=== PATIENT | female | born 1975 | race Two or more races ===

== ENCOUNTER 2017-06-20 12:17 | Emergency (ER) | payer OTHER ==
[~2017-06-20] VITALS: Ht 152.4 cm; Wt 76.2 kg
[~2017-06-20 12:17] MED LIST: GEMF600T3 PO; No meds per pt.; OMEP-110 PO; ONDA4TAB10 PO
[2017-06-20] MEDS ORDERED: HYDROmorphone 1 MG/ML, 1ML ONE ×2 (13:08→13:56)
[2017-06-20] MEDS: HYDROmorphone 1 MG/ML, 1ML IM PRN ×2 (13:16→14:00)
[2017-06-20] MEDS ORDERED: MAALOX/HYOSCYAMINE/LIDOCAINE 45 ML BTL ONE (14:15)
[2017-06-20] MEDS ORDERED: ONDANSETRON ODT 4 MG ONE (14:27)
[2017-06-20 14:30] VITALS: BP 108/60
[2017-06-20] MEDS ORDERED: MAALOX/HYOSCYAMINE/LIDOCAINE 45 ML BTL PO ONE (14:30)
[2017-06-20] MEDS ORDERED: METOCLOPRAMIDE 5 MG/ML, 2ML ONE (14:55)
[2017-06-20] MEDS ORDERED: LORazepam 2 MG/ML, 1ML ONE (14:55)
[2017-06-20] MEDS ORDERED: morphine SULFATE 10 MG/ML, 1ML ONE (14:55)
[2017-06-20] MEDS ORDERED: MORPHINE SULFATE 4 MG/ML, 1ML IVPush PRN (15:00)
[2017-06-20] MEDS ORDERED: LORazepam 2 MG/ML, 1ML IVPush ONE (15:00)
[2017-06-20] MEDS ORDERED: METOCLOPRAMIDE 5 MG/ML, 2ML IVPush ONE (15:00)
== END 2017-06-20 16:09 | disposition home or self-care (01) ==
LOC: ED 13:01
DX: R51 Headache (principal); R10.9 Unspecified abdominal pain; Z90.710 Acquired absence of both cervix and uterus; Z90.49 Acquired absence of other specified parts of digestive tract
CPT/HCPCS: 70450; 96372; 96374; 96375; 99284; J1170; J2060; J2765

== ENCOUNTER 2017-08-07 11:16 | Day surgery (SDC) | payer OTHER ==
[2017-08-06 10:48] VITALS: BP 114/75
[~2017-08-07] VITALS: Ht 152.4 cm; Wt 74.3 kg
[~2017-08-07 11:16] MED LIST changes: +PANT20TA3 PO; +SUCR1TAB PO
[2017-08-07 11:41] VITALS: BP 114/75
[2017-08-07] MEDS ORDERED: LACTATED RINGERS 1,000 ML IV SCH (11:56)
[2017-08-07] MEDS ORDERED: PROPOFOL 10 MG/ML, 20ML ONE (13:04)
[2017-08-07] MEDS ORDERED: ACETAMINOPHEN 325 MG TABLET PO PRN (14:00)
[2017-08-07] MEDS ORDERED: ONDANSETRON 2MG/ML, 2ML IVPush PRN (14:00)
[2017-08-07] MEDS ORDERED: FENTANYL PF 100 MCG/2ML IV PRN (14:00)
== END 2017-08-07 14:40 ==
LOC: OUT 11:16
PROVIDERS: ATTEND Internal Medicine Gastroenterology
DX: K29.50 Unspecified chronic gastritis without bleeding (principal); K21.0 Gastro-esophageal reflux disease with esophagitis; K22.10 Ulcer of esophagus without bleeding; Z90.3 Acquired absence of stomach [part of]; Z88.8 Allergy status to other drugs, medicaments and biological substances; Z90.710 Acquired absence of both cervix and uterus; Z85.41 Personal history of malignant neoplasm of cervix uteri
CPT/HCPCS: 43239; 88305; J2704; J7120

== ENCOUNTER → 2018-02-18 | Outpatient (CLI) | payer OTHER ==
[2018-02-18 08:00] LABS: HCT (SEDRATE) 39.6 % (34.6-47.8)
[2018-02-18 08:16] LABS: CHOL/HDL RATIO 4.1; LDL/HDL RATIO 2.4 (0.5-3.0)
[2018-02-19 13:51] LABS: ANA SCREEN NEGATIVE (Negative)
== END | disposition home or self-care (01) ==
LOC: LAB 07:46
PROVIDERS: ATTEND Family Medicine
DX: Z13.1 Encounter for screening for diabetes mellitus (principal); E78.5 Hyperlipidemia, unspecified; M79.643 Pain in unspecified hand
CPT/HCPCS: 36415; 80061; 83036; 85651; 86038; 86430

== ENCOUNTER → 2018-07-15 | Outpatient (CLI) | payer OTHER ==
[~2018-07-15] MED LIST changes: -GEMF600T3 PO; +GEMF600T4 PO
[2018-07-15 08:23] LABS: BASOPHILS # (AUTO) 0.03 x10^3/uL (0-0.1); BASOPHILS % (AUTO) 1 % (0-1); EOSINOPHILS # (AUTO) 0.05 x10^3/uL (0-0.4); EOSINOPHILS % (AUTO) 1 % (1-7); LYMPHOCYTES # (AUTO) 1.67 x10^3/uL (1-3.4); LYMPHOCYTES % (AUTO) 44 % (22-44); MD NO; MEAN CORPUSCULAR HGB CONC 33.5 g/dL (32.4-35.8); MEAN CORPUSCULAR VOLUME 89.3 fL (80-100); MEAN PLATELET VOLUME 8.9 fL (7.4-10.4); MONOCYTES # (AUTO) 0.41 x10^3/uL (0.2-0.8); MONOCYTES % (AUTO) 11 % (2-9); NEUTROPHILS # (AUTO) 1.68 x10^3/uL (1.8-6.8); NEUTROPHILS % (AUTO) 44 % (42-75); PLATELET COUNT 219 x10^3/uL (130-400); RED BLOOD COUNT 4.68 x10^6/uL (3.82-5.3); RED CELL DISTRIBUTION WIDTH 12.1 % (9.6-15.2)
[2018-07-15 08:35] LABS: ALANINE AMINOTRANSFERASE 23 U/L (12-78); ALBUMIN 4.2 g/dL (3.4-5.0); ANION GAP 7 mmol/L (5-15); CALCIUM 9.3 mg/dL (8.5-10.1); CHLORIDE 108 mmol/L (98-107); CHOLESTEROL, TOTAL 217 mg/dL (140-239)
[2018-07-15 08:45] LABS: ALKALINE PHOSPHATASE 74 U/L (45-117); BILIRUBIN,TOTAL 0.5 mg/dL (0.2-1.0); CHOL/HDL RATIO 4.1; HDL CHOL % 24 % (28-40); HDL CHOLESTEROL (DIRECT) 53 mg/dL (40-60); LDL CHOLESTEROL,CALCULATED 136 mg/dL (54-169); LDL/HDL RATIO 2.6 (0.5-3.0); TOTAL PROTEIN 7.6 g/dL (6.4-8.2); TRIGLYCERIDES 138 mg/dL (50-200); VLDL CHOLESTEROL 28 mg/dL (0-25)
== END | disposition home or self-care (01) ==
LOC: LAB 08:11
PROVIDERS: ATTEND Family Medicine
DX: R53.83 Other fatigue (principal); E78.2 Mixed hyperlipidemia
CPT/HCPCS: 36415; 80053; 80061; 84443; 85025

== ENCOUNTER 2018-07-27 18:44 | Emergency (ER) | payer OTHER | END 2018-07-27 19:29 | disposition left against medical advice (07) | LOC: ED 19:23 | DX: M25.511 Pain in right shoulder (principal); Z53.21 Procedure and treatment not carried out due to patient leaving prior to being seen by health care provider ==

== ENCOUNTER 2018-08-12 21:21 | Emergency (ER) | payer OTHER ==
[~2018-08-12] VITALS: Ht 149.9 cm; Wt 76.1 kg
[2018-08-12 22:05] LABS: BASOPHILS # (AUTO) 0.03 x10^3/uL (0-0.1); BASOPHILS % (AUTO) 1 % (0-1); EOSINOPHILS # (AUTO) 0.06 x10^3/uL (0-0.4); EOSINOPHILS % (AUTO) 1 % (1-7); LYMPHOCYTES # (AUTO) 1.82 x10^3/uL (1-3.4); LYMPHOCYTES % (AUTO) 33 % (22-44); MD NO; MEAN CORPUSCULAR HEMOGLOBIN 30.8 pg (27.0-34.8); MEAN CORPUSCULAR VOLUME 90.7 fL (80-100); MEAN PLATELET VOLUME 8.9 fL (7.4-10.4); MONOCYTES # (AUTO) 0.47 x10^3/uL (0.2-0.8); MONOCYTES % (AUTO) 9 % (2-9); NEUTROPHILS # (AUTO) 3.07 x10^3/uL (1.8-6.8); NEUTROPHILS % (AUTO) 56 % (42-75); PLATELET COUNT 237 x10^3/uL (130-400); RED BLOOD COUNT 4.48 x10^6/uL (3.82-5.3); RED CELL DISTRIBUTION WIDTH 12.7 % (9.6-15.2)
[2018-08-12 22:17] LABS: ALANINE AMINOTRANSFERASE 20 U/L (12-78); ALBUMIN 3.7 g/dL (3.4-5.0); ANION GAP 5 mmol/L (5-15); CALCIUM 8.6 mg/dL (8.5-10.1); CHLORIDE 113 mmol/L (98-107); CREATININE 0.88 mg/dL (0.55-1.02); INTERNATIONAL NORMALIZED RATIO 1.01 (0.93-1.1); PROTHROMBIN TIME 10.7 Seconds (9.6-11.5)
[2018-08-12 22:19] LABS: ALKALINE PHOSPHATASE 68 U/L (45-117); BILIRUBIN,TOTAL 0.2 mg/dL (0.2-1.0); TOTAL PROTEIN 7.1 g/dL (6.4-8.2)
[2018-08-12 23:23] VITALS: BP 148/87
== END 2018-08-12 23:25 | disposition home or self-care (01) ==
LOC: ED 21:58
DX: K92.0 Hematemesis (principal); C53.9 Malignant neoplasm of cervix uteri, unspecified; Z90.49 Acquired absence of other specified parts of digestive tract; Z90.710 Acquired absence of both cervix and uterus
CPT/HCPCS: 36415; 80053; 85025; 85610; 85730; 86850; 86900; 99283

== ENCOUNTER 2018-09-18 09:08 | Day surgery (SDC) | payer OTHER ==
[~2018-09-18] VITALS: Ht 152.4 cm; Wt 74.8 kg
[~2018-09-18 09:08] MED LIST changes: -GEMF600T4 PO; +GEMF600T8 PO; +MULT-658 PO
[2018-09-18 09:32] VITALS: BP 107/70
[2018-09-18] MEDS ORDERED: LACTATED RINGERS 1,000 ML IV SCH (09:39)
[2018-09-18] MEDS ORDERED: PROPOFOL 10 MG/ML, 50ML ONE (11:30)
== END 2018-09-18 11:55 | disposition home or self-care (01) ==
LOC: OUT 09:08
PROVIDERS: ATTEND Internal Medicine Gastroenterology
DX: K21.0 Gastro-esophageal reflux disease with esophagitis (principal); Z90.3 Acquired absence of stomach [part of]; Z98.890 Other specified postprocedural states; Z88.5 Allergy status to narcotic agent; Z88.8 Allergy status to other drugs, medicaments and biological substances
CPT/HCPCS: 43239; 88305; J2704; J7120

== ENCOUNTER 2018-12-13 18:59 | Emergency (ER) | payer OTHER ==
[~2018-12-13] VITALS: Ht 152.4 cm; Wt 73.8 kg
[2018-12-13 19:05] VITALS: BP 108/64
[2018-12-13] MEDS ORDERED: KETOROLAC 30 MG/1 ML ONE (19:18)
[2018-12-13] MEDS ORDERED: KETOROLAC 30 MG/1 ML IM ONE (19:30)
== END 2018-12-13 19:55 | disposition home or self-care (01) ==
LOC: ED 19:20
DX: M19.011 Primary osteoarthritis, right shoulder (principal); M25.532 Pain in left wrist
CPT/HCPCS: 73030; 73110; 96372; 99283; J1885

== ENCOUNTER → 2019-03-02 | Outpatient (CLI) | payer OTHER | END | disposition home or self-care (01) | LOC: CFH 09:28 | PROVIDERS: ATTEND Family Medicine | DX: N63.10 Unspecified lump in the right breast, unspecified quadrant (principal) | CPT/HCPCS: 76642; 77066; G0279 ==

== ENCOUNTER 2019-09-23 12:28 | Emergency (ER) | payer OTHER ==
[~2019-09-23] VITALS: Ht 152.4 cm; Wt 80.0 kg
--- NOTE | 2019-09-23 16:27 | NUR ---
nilx1 for pit
[2019-09-23 17:01] LABS: BASOPHILS # (AUTO) 0.03 x10^3/uL (0-0.1); BASOPHILS % (AUTO) 1 % (0-1); EOSINOPHILS # (AUTO) 0.07 x10^3/uL (0-0.4); EOSINOPHILS % (AUTO) 1 % (1-7); LYMPHOCYTES # (AUTO) 1.46 x10^3/uL (1-3.4); LYMPHOCYTES % (AUTO) 27 % (22-44); MD NO; MEAN CORPUSCULAR HEMOGLOBIN 30.2 pg (27.0-34.8); MEAN CORPUSCULAR HGB CONC 33.7 g/dL (32.4-35.8); MEAN CORPUSCULAR VOLUME 89.8 fL (80-100); MEAN PLATELET VOLUME 9.1 fL (7.4-10.4); MONOCYTES # (AUTO) 0.52 x10^3/uL (0.2-0.8); MONOCYTES % (AUTO) 10 % (2-9); NEUTROPHILS % (AUTO) 62 % (42-75); PLATELET COUNT 222 x10^3/uL (130-400); RED BLOOD COUNT 4.64 x10^6/uL (3.82-5.3)
[2019-09-23 17:14] LABS: ALANINE AMINOTRANSFERASE 150 U/L (12-78); ALBUMIN 4.1 g/dL (3.4-5.0); ANION GAP 4 mmol/L (5-15); CALCIUM 9.4 mg/dL (8.5-10.1); CHLORIDE 110 mmol/L (98-107); CREATININE 0.68 mg/dL (0.55-1.02)
[2019-09-23 17:16] LABS: ALKALINE PHOSPHATASE 106 U/L (45-117); BILIRUBIN,TOTAL 0.7 mg/dL (0.2-1.0); TOTAL PROTEIN 7.5 g/dL (6.4-8.2)
--- NOTE | 2019-09-23 17:20 | NUR ---
PATIENT BROUGHT BACK FROM LOBBY CHIEF COMPLAINT OF PAIN IN CENTER OF ABDOMEN RADIATING TO LOWER BACK STARTING AT 10 AM THIS MORNING. DENIES N/V, CP, SOB. PATIENT STATES "FEELS LIKE I HAVE AIR IN MY STOMACH", LAST BM TODAY
[2019-09-23 17:50] LABS: CULTURE INDICATED? YES; HCG UR SG 1.016 (1.003-1.030); MICROSCOPIC INDICATED
--- NOTE | 2019-09-23 18:16 | NUR ---
LOLITA MARIA AT BEDSIDE FOR EVALUATION
[2019-09-23] MEDS ORDERED: ONDANSETRON 2MG/ML, 2ML IVPush ONE (18:30)
[2019-09-23] MEDS ORDERED: FAMOTIDINE 20 MG/2 ML IVPush ONE (18:30)
[2019-09-23] MEDS ORDERED: MORPHINE SULFATE 4 MG/ML, 1ML ONE ×2 (18:39→21:03)
[2019-09-23] MEDS ORDERED: ONDANSETRON 2MG/ML, 2ML ONE (18:39)
[2019-09-23] MEDS ORDERED: FAMOTIDINE 20 MG/2 ML ONE (18:39)
[2019-09-23] MEDS: MORPHINE SULFATE 4 MG/ML, 1ML IVPush PRN ×2 (18:43→21:07)
--- NOTE | 2019-09-23 18:53 | NUR ---
REPORT TO JOEY QUIROGA
--- NOTE | 2019-09-23 19:02 | NUR ---
Report from Alcira QUIROGA, pt in [facility] side rails up and call light within reach.
[2019-09-23] MEDS ORDERED: OMEP-110 PO (19:08)
[2019-09-23] MEDS ORDERED: OMNIPAQUE 350 MG/ML, 100ML BOTTLE ONE (19:34)
[2019-09-23] MEDS ORDERED: MAALOX/HYOSCYAMINE/LIDOCAINE 45 ML BTL ONE (20:09)
--- NOTE | 2019-09-23 20:15 | NUR ---
Pt medicated per MAR.
[2019-09-23] MEDS ORDERED: MAALOX/HYOSCYAMINE/LIDOCAINE 45 ML BTL PO ONE (20:30)
[2019-09-23 21:05] VITALS: BP 108/67
--- NOTE | 2019-09-23 21:08 | NUR ---
pt medicated for pain, see mar
--- NOTE | 2019-09-23 21:35 | NUR ---
pt resting calmly on gurney with eyes closed, stated " pain is really better it's 09/10 now", denies further needs. chart up for recheck
--- NOTE | 2019-09-23 21:45 | NUR ---
Pt ready for dc, IV out with tip intact.
== END 2019-09-23 21:56 | disposition home or self-care (01) ==
LOC: ED 17:17
DX: R10.11 Right upper quadrant pain (principal); R10.13 Epigastric pain; Z90.49 Acquired absence of other specified parts of digestive tract
CPT/HCPCS: 36415; 74177; 80053; 81001; 81025; 83690; 85025; 87086; 96374; 96375; 96376; 99284; J2270; J2405; J3490; Q9967

== ENCOUNTER 2019-10-08 14:03 | Outpatient (CLI) | payer OTHER | END 2019-10-08 23:59 | disposition home or self-care (01) | LOC: LAB 14:03 → RAD 23:59 | PROVIDERS: ATTEND Family Medicine | DX: M25.552 Pain in left hip (principal) ==

== ENCOUNTER → 2019-10-14 | Outpatient (CLI) | payer OTHER | END | disposition home or self-care (01) | LOC: RAD 15:50 | PROVIDERS: ATTEND Family Medicine | DX: R51 Headache (principal) | CPT/HCPCS: 70551 ==

== ENCOUNTER → 2020-01-17 | Emergency (ER) | payer OTHER ==
[~2020-01-17] VITALS: Ht 152.4 cm; Wt 84.0 kg
[~2020-01-17] MED LIST changes: +MORPHINE SULFATE 4 MG/ML, 1ML IVPush PRN; +OMNIPAQUE 350 MG/ML, 100ML BOTTLE ONE; +ONDANSETRON 2MG/ML, 2ML IVPush ONE; +SODIUM CHLORIDE FLUSH 10ML SYR IVF ONE
--- NOTE | 2020-01-17 16:58 | NUR ---
PT STATES THAT SHE BEGAN HAVING ABD PAIN YEST. PT DENIES N/V/D. LAST BM TODAY AND WAS NORMAL. PT PLACED ON MONITOR. WILL CONTINUE TO MONITOR.
--- NOTE | 2020-01-17 17:48 | NUR ---
PT STATES THAT SHE IS NOT CURRENTLY IN PAIN OR NAUSEATED. PT STATES SHE DOES NOT WANT ANY NAUSEA OR PAIN MEDICATION. I INSTRUCTED THE PT TO INFORM ME IF SHE NEEDS ANY MEDICATION OR ASSISTANCE. PT VERBALIZED UNDERSTANDING. PT RESTING COMFORTABLY. WILL CONTINUE TO MONITOR.
[2020-01-17 18:00] LABS: BASOPHILS # (AUTO) 0.02 x10^3/uL (0-0.1); BASOPHILS % (AUTO) 1 % (0-1); EOSINOPHILS # (AUTO) 0.05 x10^3/uL (0-0.4); EOSINOPHILS % (AUTO) 1 % (1-7); LYMPHOCYTES % (AUTO) 38 % (22-44); MD NO; MEAN CORPUSCULAR HGB CONC 34.2 g/dL (32.4-35.8); MEAN CORPUSCULAR VOLUME 90.8 fL (80-100); MEAN PLATELET VOLUME 8.8 fL (7.4-10.4); MONOCYTES # (AUTO) 0.36 x10^3/uL (0.2-0.8); MONOCYTES % (AUTO) 8 % (2-9); NEUTROPHILS # (AUTO) 2.36 x10^3/uL (1.8-6.8); NEUTROPHILS % (AUTO) 53 % (42-75); PLATELET COUNT 226 x10^3/uL (130-400); RED BLOOD COUNT 4.22 x10^6/uL (3.82-5.3); RED CELL DISTRIBUTION WIDTH 12.5 % (9.6-15.2)
[2020-01-17 18:14] LABS: ALBUMIN 3.6 g/dL (3.4-5.0); ANION GAP 4 mmol/L (5-15); CHLORIDE 111 mmol/L (98-107)
[2020-01-17 18:17] LABS: MICROSCOPIC AUTO
[2020-01-17 18:18] LABS: ALANINE AMINOTRANSFERASE 18 U/L (12-78); ALKALINE PHOSPHATASE 69 U/L (45-117); BILIRUBIN,TOTAL 0.2 mg/dL (0.2-1.0); CREATININE 0.73 mg/dL (0.55-1.02); TOTAL PROTEIN 6.9 g/dL (6.4-8.2)
[2020-01-17 19:24] VITALS: BP 111/63
== END ==
LOC: ED 19:48
DX: R10.11 Right upper quadrant pain (principal); R10.12 Left upper quadrant pain; R10.32 Left lower quadrant pain; R10.13 Epigastric pain
CPT/HCPCS: 36415; 74177; 80053; 81001; 83690; 85025; 87086; 99285; Q9967

== ENCOUNTER → 2020-10-26 | Outpatient (CLI) | payer OTHER ==
[~2020-10-26] MED LIST changes: +GEMF-31 PO; -GEMF600T8 PO; -MORPHINE SULFATE 4 MG/ML, 1ML IVPush PRN; -OMNIPAQUE 350 MG/ML, 100ML BOTTLE ONE; -ONDANSETRON 2MG/ML, 2ML IVPush ONE; -PANT20TA3 PO; +PANT20TA4 PO; -SODIUM CHLORIDE FLUSH 10ML SYR IVF ONE
[2020-10-26 07:43] LABS: BASOPHILS % (AUTO) 1 % (0-1); EOSINOPHILS % (AUTO) 1 % (1-7); LYMPHOCYTES % (AUTO) 38 % (22-44); MEAN CORPUSCULAR HEMOGLOBIN 30.1 pg (27.0-34.8); MEAN CORPUSCULAR HGB CONC 33.9 g/dL (32.4-35.8); MEAN PLATELET VOLUME 8.3 fL (7.4-10.4); MONOCYTES % (AUTO) 8 % (2-9); NEUTROPHILS % (AUTO) 52 % (42-75); PLATELET COUNT 237 x10^3/uL (130-400); RED BLOOD COUNT 4.65 x10^6/uL (3.82-5.3); RED CELL DISTRIBUTION WIDTH 12.5 % (9.6-15.2)
[2020-10-26 07:44] LABS: MD NO
[2020-10-26 07:45] LABS: HCT (SEDRATE) 41.3 % (34.6-47.8)
[2020-10-26 07:55] LABS: ALANINE AMINOTRANSFERASE 20 U/L (12-78); ALBUMIN 3.7 g/dL (3.4-5.0); ANION GAP 6 mmol/L (5-15); C-REACTIVE PROTEIN, QUANT 0.09 mg/dL (0.02-0.49); CALCIUM 8.5 mg/dL (8.5-10.1); CHLORIDE 111 mmol/L (98-107); CHOLESTEROL, TOTAL 184 mg/dL (140-239); CREATININE 0.71 mg/dL (0.55-1.02)
[2020-10-26 08:03] LABS: ALKALINE PHOSPHATASE 77 U/L (45-117); BILIRUBIN,TOTAL 0.4 mg/dL (0.2-1.0); CHOL/HDL RATIO 3.5; HDL CHOL % 28 % (28-40); HDL CHOLESTEROL (DIRECT) 52 mg/dL (40-60); LDL CHOLESTEROL,CALCULATED 112 mg/dL (54-169); LDL/HDL RATIO 2.2 (0.5-3.0); TRIGLYCERIDES 99 mg/dL (50-200); VLDL CHOLESTEROL 20 mg/dL (0-25)
[2020-10-26 15:11] LABS: ANA SCREEN NEGATIVE (Negative)
== END | disposition home or self-care (01) ==
LOC: RAD 07:22
PROVIDERS: ATTEND Family Medicine
DX: M51.36 Other intervertebral disc degeneration, lumbar region (principal); M48.061 Spinal stenosis, lumbar region without neurogenic claudication; M13.0 Polyarthritis, unspecified; R53.83 Other fatigue; E78.2 Mixed hyperlipidemia; M25.511 Pain in right shoulder
CPT/HCPCS: 36415; 72050; 72110; 80053; 80061; 82306; 84443; 84550; 85025; 85651; 86038; 86140; 86430

== ENCOUNTER → 2020-12-27 | Outpatient (CLI) | payer OTHER | END | disposition home or self-care (01) | LOC: CFH 09:01 | PROVIDERS: ATTEND Family Medicine | DX: M47.26 Other spondylosis with radiculopathy, lumbar region (principal); M48.07 Spinal stenosis, lumbosacral region; M51.17 Intervertebral disc disorders with radiculopathy, lumbosacral region | CPT/HCPCS: 72148 ==

== ENCOUNTER 2021-05-15 12:58 | Emergency (ER) | payer OTHER ==
[~2021-05-15] VITALS: Ht 152.4 cm; Wt 81.2 kg
[2021-05-15 14:26] LABS: BASOPHILS % (AUTO) 1 % (0-1); EOSINOPHILS % (AUTO) 1 % (1-7); LYMPHOCYTES % (AUTO) 29 % (22-44); MEAN CORPUSCULAR HGB CONC 34.5 g/dL (32.4-35.8); MEAN PLATELET VOLUME 8.4 fL (7.4-10.4); MONOCYTES % (AUTO) 10 % (2-9); NEUTROPHILS % (AUTO) 59 % (42-75); PLATELET COUNT 300 x10^3/uL (130-400); RED BLOOD COUNT 4.63 x10^6/uL (3.82-5.3); RED CELL DISTRIBUTION WIDTH 12.4 % (9.6-15.2)
[2021-05-15 14:31] LABS: ALBUMIN 3.2 g/dL (3.4-5.0); ANION GAP 6 mmol/L (5-15); CALCIUM 8.8 mg/dL (8.5-10.1); CHLORIDE 110 mmol/L (98-107)
[2021-05-15 14:32] LABS: CREATININE 0.63 mg/dL (0.55-1.02)
--- NOTE | 2021-05-15 14:50 | NUR ---
MARRIAGE COUNSELOR: PT TO ROOM FROM TRACY DUGAN
--- NOTE | 2021-05-15 14:56 | NUR ---
FIRST CONTACT: COUGH, RUNNY NOSE, CHEST PAIN BACK PAIN X 10 DAYS NEGATIVE COVID-19 05/08/2021 POSITIVE COVID-19 VACCINE PT TO BED WITH STEADY GAIT. POSTIONED TO COMFORT. ATTACHED TO MONITORS. VSS. FERREIRA
[2021-05-15 15:01] VITALS: BP 115/62
--- NOTE | 2021-05-15 16:25 | NUR ---
Patient given discharge instructions and they have confirmed that they understand the instructions. Patient ambulatory with steady gait. NAD, all questions answered appropriately, denies additional needs at this time. No personal belongings left in room after discharge.
== END 2021-05-15 16:26 | disposition home or self-care (01) ==
LOC: ED 16:00
DX: B34.9 Viral infection, unspecified (principal); Z20.822 Contact with and (suspected) exposure to COVID-19; R94.31 Abnormal electrocardiogram [ECG] [EKG]; M19.90 Unspecified osteoarthritis, unspecified site; Z90.49 Acquired absence of other specified parts of digestive tract; Z90.710 Acquired absence of both cervix and uterus; Z85.41 Personal history of malignant neoplasm of cervix uteri
CPT/HCPCS: 36415; 71045; 80048; 82040; 85025; 93005; 99285; U0003; U0005